=== PATIENT | female | born 1995 | race Caucasian/White ===

== ENCOUNTER 2016-11-06 08:12 | Emergency (ER) | payer MEDICAID ==
[~2016-11-06] VITALS: Ht 160 cm; Wt 46.0 kg
[2016-11-06] MEDS ORDERED: SODIUM CHLORIDE 0.9% 1,000 ML IV ONE (09:12)
[2016-11-06] MEDS ORDERED: ONDANSETRON HCL 4MG/2ML VIAL IV STA (09:12)
[2016-11-06 10:03] LABS: BASOPHILS % 0.3 % (0.0-2.0); EOSINOPHILS % 2.1 % (0.0-5.0); HEMATOCRIT. 34.4 % (36.0-48.0); HEMOGLOBIN. 11.9 g/dL (12.0-16.0); LYMPHOCYTES % 22.6 % (20.0-50.0); MEAN CORPUSCULAR HEMOGLOBIN 29.6 pg (28.0-32.0); MEAN CORPUSCULAR VOLUME 85.7 fL (81.0-99.0); MEAN PLATELET VOLUME 10.2 fl (7.4-10.4); PLATELET 127 x1000/uL (130-400); RED BLOOD CELL COUNT 4.01 mill/uL (4.2-5.4); RED CELL DISTRIBUTION WIDTH 13.9 % (11.6-14.6)
[2016-11-06 10:08] LABS: INR 1.1; PROTHROMBIN TIME 11.5 sec
[2016-11-06 10:14] LABS: CARBON DIOXIDE 31 mEq/L (21-32); CHLORIDE 106 mEq/L (98-107)
[2016-11-06 11:16] LABS: CLARITY URINE CLOUDY (CLEAR); COLOR URINE DARK YELLOW (YELLOW); GLUCOSE URINE NEGATIVE (NEGATIVE); KETONES URINE TRACE (NEGATIVE); LEUKOCYTE ESTERASE URINE NEGATIVE (NEGATIVE); NITRITE URINE NEGATIVE (NEGATIVE); OCCULT BLOOD URINE NEGATIVE (NEGATIVE); PH URINE 5.5 (4.5-8.0); PROTEIN URINE TRACE (NEGATIVE); SPECIFIC GRAVITY URINE 1.027 (1.005-1.030)
[2016-11-06 11:37] LABS: *AMPHETAMINES SCREEN URINE NEGATIVE (NEGATIVE); *BARBITURATES SCREEN URINE NEGATIVE (NEGATIVE); *BENZODIAZEPINES SCREEN URINE NEGATIVE (NEGATIVE); *COCAINE SCREEN URINE NEGATIVE (NEGATIVE); CANNABINOID URINE SCREEN NEGATIVE (NEGATIVE); METHADONE URINE SCREEN NEGATIVE (NEGATIVE); OPIATES URINE SCREEN NEGATIVE (NEGATIVE); PHENCYCLIDINE URINE SCREEN NEGATIVE (NEGATIVE)
[2016-11-06] MEDS ORDERED: KETOROLAC 30MG/ML VIAL IV ONE (12:00)
[2016-11-06 12:08] VITALS: BP 97/65
== END 2016-11-06 12:39 | disposition home or self-care (01) ==
LOC: ER 08:41
DX: R10.9 Unspecified abdominal pain (principal); R50.9 Fever, unspecified
CPT/HCPCS: 36415; 80053; 80305; 81001; 81025; 83690; 85025; 85610; 96361; 96374; 96375; 99284; J1885; J2405; J7030

== ENCOUNTER 2017-01-22 23:32 | Emergency (ER) | payer MEDICAID ==
[~2017-01-22] VITALS: Ht 154.9 cm; Wt 53.6 kg
[2017-01-23] MEDS ORDERED: DICYCLOMINE 10 MG/5 ML ORAL SYR PO ONE (01:45)
[2017-01-23] MEDS ORDERED: SODIUM CHLORIDE 0.9% 1,000 ML IV ONE (01:45)
[2017-01-23 02:22] LABS: BASOPHILS % 0.3 % (0.0-2.0); EOSINOPHILS % 0.6 % (0.0-5.0); HEMATOCRIT. 33.6 % (36.0-48.0); HEMOGLOBIN. 11.5 g/dL (12.0-16.0); LYMPHOCYTES % 23.8 % (20.0-50.0); MEAN CORPUSCULAR HEMOGLOBIN 29.1 pg (28.0-32.0); MEAN CORPUSCULAR VOLUME 85.2 fL (81.0-99.0); MEAN PLATELET VOLUME 11.4 fl (7.4-10.4); NEUTROPHILS % 69.3 % (40.0-76.0); PLATELET 136 x1000/uL (130-400); RED BLOOD CELL COUNT 3.94 mill/uL (4.2-5.4); RED CELL DISTRIBUTION WIDTH 14.1 % (11.6-14.6)
[2017-01-23 02:39] LABS: CARBON DIOXIDE 26 mEq/L (21-32); CHLORIDE 106 mEq/L (98-107)
[2017-01-23 02:49] LABS: B-HCG QUANTITATIVE 92752 mIU/mL (<3)
[2017-01-23 04:11] LABS: *AMPHETAMINES SCREEN URINE NEGATIVE (NEGATIVE); *BARBITURATES SCREEN URINE NEGATIVE (NEGATIVE); *BENZODIAZEPINES SCREEN URINE NEGATIVE (NEGATIVE); *COCAINE SCREEN URINE NEGATIVE (NEGATIVE); CANNABINOID URINE SCREEN NEGATIVE (NEGATIVE); METHADONE URINE SCREEN NEGATIVE (NEGATIVE); OPIATES URINE SCREEN NEGATIVE (NEGATIVE); PHENCYCLIDINE URINE SCREEN NEGATIVE (NEGATIVE)
[2017-01-23] MEDS ORDERED: SODIUM CHLORIDE 0.9% 1,000 ML IV NR (04:41)
[2017-01-23 05:54] VITALS: BP 119/77
== END 2017-01-23 06:04 | disposition home or self-care (01) ==
LOC: ER 23:32
DX: O26.899 Other specified pregnancy related conditions, unspecified trimester (principal); R10.2 Pelvic and perineal pain; R58 Hemorrhage, not elsewhere classified; R10.30 Lower abdominal pain, unspecified
CPT/HCPCS: 36415; 76801; 76817; 80053; 80305; 84702; 85025; 86850; 86900; 86901; 96360; 99285; G0482; J7030; Z7610

== ENCOUNTER 2018-03-26 16:54 | Emergency (ER) | payer MEDICAID ==
[~2018-03-26] VITALS: Ht 154.9 cm; Wt 51.0 kg
[2018-03-26 23:23] LABS: CLARITY URINE CLOUDY (CLEAR); COLOR URINE YELLOW (YELLOW); KETONES URINE TRACE (NEGATIVE); LEUKOCYTE ESTERASE URINE 2+ (NEGATIVE); NITRITE URINE NEGATIVE (NEGATIVE); OCCULT BLOOD URINE 2+ (NEGATIVE); PH URINE 5.5 (4.5-8.0); PROTEIN URINE NEGATIVE (NEGATIVE); SPECIFIC GRAVITY URINE 1.019 (1.005-1.030)
[2018-03-27] MEDS ORDERED: CEPHALEXIN 250MG CAPSULE PO SCH
[2018-03-27 00:15] LABS: BASOPHILS % 0.1 % (0.0-2.0); EOSINOPHILS % 1.5 % (0.0-5.0); HEMATOCRIT. 34.1 % (36.0-48.0); MEAN CORPUSCULAR HEMOGLOBIN 29.6 pg (28.0-32.0); MEAN CORPUSCULAR VOLUME 83.9 fL (81.0-99.0); MEAN PLATELET VOLUME 10.5 fl (7.4-10.4); MONOCYTES % 5.6 % (2.0-8.0); NEUTROPHILS % 67.8 % (40.0-76.0); PLATELET 157 x1000/uL (130-400); RED BLOOD CELL COUNT 4.06 mill/uL (4.2-5.4); RED CELL DISTRIBUTION WIDTH 14.4 % (11.6-14.6)
[2018-03-27 00:23] LABS: CHLORIDE 103 mEq/L (98-107)
[2018-03-27 00:47] LABS: B-HCG QUANTITATIVE 89660 mIU/mL (<3)
[2018-03-27 01:10] VITALS: BP 92/60
== END 2018-03-27 01:31 | disposition home or self-care (01) ==
LOC: ER 20:38
DX: O23.31 Infections of other parts of urinary tract in pregnancy, first trimester (principal); O21.8 Other vomiting complicating pregnancy; O99.341 Other mental disorders complicating pregnancy, first trimester; O99.511 Diseases of the respiratory system complicating pregnancy, first trimester; Z3A.11 11 weeks gestation of pregnancy
CPT/HCPCS: 36415; 76801; 81025; 84702; 86850; 86900; 87077; 99284

== ENCOUNTER 2019-02-08 03:40 | Emergency (ER) | payer MEDICAID ==
[~2019-02-08] VITALS: Ht 160 cm; Wt 53.0 kg
[2019-02-08 04:43] LABS: CLARITY URINE CLOUDY (CLEAR); COLOR URINE DARK YELLOW (YELLOW); KETONES URINE 1+ (NEGATIVE); LEUKOCYTE ESTERASE URINE 2+ (NEGATIVE); NITRITE URINE NEGATIVE (NEGATIVE); OCCULT BLOOD URINE NEGATIVE (NEGATIVE); PH URINE 5.5 (4.5-8.0); PROTEIN URINE 3+ (NEGATIVE)
[2019-02-08 04:53] LABS: BASOPHILS % 0.3 % (0.0-2.0); EOSINOPHILS % 0.1 % (0.0-5.0); HEMATOCRIT. 39.4 % (36.0-48.0); HEMOGLOBIN. 13.3 g/dL (12.0-16.0); LYMPHOCYTES % 14.7 % (20.0-50.0); MEAN CORPUSCULAR VOLUME 85.8 fL (81.0-99.0); MEAN PLATELET VOLUME 11.6 fl (7.4-10.4); MONOCYTES % 7.2 % (2.0-8.0); NEUTROPHILS % 77.7 % (40.0-76.0); PLATELET 139 x1000/uL (130-400)
[2019-02-08 04:55] LABS: CHLORIDE 106 mEq/L (98-107)
[2019-02-08 06:34] VITALS: BP 95/66
== END 2019-02-08 06:39 | disposition home or self-care (01) ==
LOC: ER 03:40
DX: N39.0 Urinary tract infection, site not specified (principal); K52.9 Noninfective gastroenteritis and colitis, unspecified
CPT/HCPCS: 36415; 80053; 81003; 81025; 83690; 85025; 87086; 99283; Z7610

== ENCOUNTER 2019-04-09 02:53 | Emergency (ER) | payer MEDICAID ==
[~2019-04-09] VITALS: Ht 154.9 cm; Wt 46.9 kg
[2019-04-09 05:05] LABS: CLARITY URINE CLOUDY (CLEAR); COLOR URINE YELLOW (YELLOW); KETONES URINE NEGATIVE (NEGATIVE); LEUKOCYTE ESTERASE URINE 2+ (NEGATIVE); NITRITE URINE NEGATIVE (NEGATIVE); OCCULT BLOOD URINE 3+ (NEGATIVE); PH URINE 7.5 (4.5-8.0); PROTEIN URINE 2+ (NEGATIVE); SPECIFIC GRAVITY URINE 1.019 (1.005-1.030)
[2019-04-09 05:52] VITALS: BP 110/59
== END 2019-04-09 06:02 | disposition home or self-care (01) ==
LOC: ER 02:53
DX: N39.0 Urinary tract infection, site not specified (principal); F12.10 Cannabis abuse, uncomplicated
CPT/HCPCS: 81003; 81025; 99283

== ENCOUNTER 2019-06-11 01:44 | Emergency (ER) | payer MEDICAID ==
[~2019-06-11] VITALS: Ht 157.5 cm; Wt 50.0 kg
[2019-06-11] MEDS ORDERED: SODIUM CHLORIDE 0.9% 1,000 ML IV ONE ×2 (03:37→05:10)
[2019-06-11] MEDS ORDERED: ONDANSETRON HCL 4MG/2ML INJ IV ONE (03:45)
[2019-06-11 04:00] LABS: BASOPHILS % 0.1 % (0.0-2.0); CHLORIDE 106 mEq/L (98-107); EOSINOPHILS % 1.3 % (0.0-5.0); HEMATOCRIT. 32.4 % (36.0-48.0); HEMOGLOBIN. 11.1 g/dL (12.0-16.0); LYMPHOCYTES % 24.4 % (20.0-50.0); MEAN CORPUSCULAR HEMOGLOBIN 28.8 pg (28.0-32.0); MEAN CORPUSCULAR VOLUME 84.4 fL (81.0-99.0); MEAN PLATELET VOLUME 11.1 fl (7.4-10.4); MONOCYTES % 6.6 % (2.0-8.0); NEUTROPHILS % 67.6 % (40.0-76.0); PLATELET 130 x1000/uL (130-400); RED BLOOD CELL COUNT 3.84 mill/uL (4.2-5.4); RED CELL DISTRIBUTION WIDTH 14.9 % (11.6-14.6)
[2019-06-11 04:24] LABS: B-HCG QUANTITATIVE 70332 mIU/mL (<3)
[2019-06-11 06:02] LABS: CLARITY URINE CLOUDY (CLEAR); COLOR URINE YELLOW (YELLOW); KETONES URINE NEGATIVE (NEGATIVE); LEUKOCYTE ESTERASE URINE 3+ (NEGATIVE); NITRITE URINE NEGATIVE (NEGATIVE); OCCULT BLOOD URINE NEGATIVE (NEGATIVE); PH URINE 6.5 (4.5-8.0); PROTEIN URINE NEGATIVE (NEGATIVE); SPECIFIC GRAVITY URINE 1.013 (1.005-1.030)
[2019-06-11 07:40] VITALS: BP 98/52
== END 2019-06-11 07:45 | disposition home or self-care (01) ==
LOC: ER 02:05
DX: O46.91 Antepartum hemorrhage, unspecified, first trimester (principal); O23.41 Unspecified infection of urinary tract in pregnancy, first trimester; F12.10 Cannabis abuse, uncomplicated; Z3A.12 12 weeks gestation of pregnancy
CPT/HCPCS: 36415; 76801; 80053; 81003; 81025; 84702; 85025; 86850; 86900; 86901; 87086; 96361; 96374; 99284; J2405; J7030

== ENCOUNTER 2021-08-26 23:56 | Emergency (ER) | payer SELFPAY ==
[~2021-08-26] VITALS: Ht 157.5 cm; Wt 54.0 kg
[2021-08-27 00:45] LABS: BASOPHILS % 0.2 % (0.0-2.0); EOSINOPHILS % 1.1 % (0.0-5.0); HEMATOCRIT. 33.7 % (36.0-48.0); HEMOGLOBIN. 11.1 g/dL (12.0-16.0); LYMPHOCYTES % 22.8 % (20.0-50.0); MEAN CORPUSCULAR HEMOGLOBIN 27.1 pg (28.0-32.0); MEAN CORPUSCULAR VOLUME 82.2 fL (81.0-99.0); MEAN PLATELET VOLUME 10.9 fl (7.4-10.4); MONOCYTES % 7.2 % (2.0-8.0); NEUTROPHILS % 68.7 % (40.0-76.0); PLATELET 158 x1000/uL (130-400); RED CELL DISTRIBUTION WIDTH 15.6 % (11.6-14.6)
[2021-08-27 00:56] LABS: CHLORIDE 106 mEq/L (98-107)
[2021-08-27 01:19] LABS: B-HCG QUANTITATIVE 71716 mIU/mL (<3)
[2021-08-27 02:25] VITALS: BP 109/65
== END 2021-08-27 02:26 | disposition home or self-care (01) ==
LOC: ER 23:56
DX: O20.9 Hemorrhage in early pregnancy, unspecified (principal); Z3A.09 9 weeks gestation of pregnancy
CPT/HCPCS: 36415; 76801; 80053; 81025; 84702; 85025; 86850; 86900; 99284

== ENCOUNTER 2023-09-09 15:27 | Emergency (ER) | payer MEDICAID ==
[~2023-09-09] VITALS: Ht 162.6 cm; Wt 58.0 kg
[2023-09-09 15:37] VITALS: O2SAT 99
[2023-09-09 16:10] LABS: BASOPHILS % 0.3 % (0.0-2.0); DIFFERENTIAL COMMENT 0; EOSINOPHILS % 2.6 % (0.0-5.0); HEMATOCRIT. 39.1 % (36.0-48.0); HEMOGLOBIN. 13.4 g/dL (12.0-16.0); LYMPHOCYTES % 13.4 % (20.0-50.0); MEAN CORPUSCULAR HEMOGLOBIN 29.9 pg (28.0-32.0); MEAN CORPUSCULAR HGB CONC 34.3 g/dL (31.0-37.0); MEAN CORPUSCULAR VOLUME 87.1 fL (81.0-99.0); MEAN PLATELET VOLUME 11.1 fl (7.4-10.4); MONOCYTES % 5.9 % (2.0-8.0); NEUTROPHILS % 77.8 % (40.0-76.0); PLATELET 179 x1000/uL (130-400); RED BLOOD CELL COUNT 4.49 mill/uL (4.2-5.4); RED CELL DISTRIBUTION WIDTH 13.8 % (11.6-14.6); WHITE BLOOD COUNT 11.4 x1000/uL (4.5-11.0)
[2023-09-09 16:14] LABS: CHLORIDE 105 mEq/L (98-107); POTASSIUM 3.7 mEq/L (3.5-5.1); SODIUM 136 mEq/L (136-145)
[2023-09-09 16:15] LABS: CARBON DIOXIDE 25 mEq/L (21-32)
[2023-09-09 16:16] LABS: CALCIUM 9.4 mg/dL (8.7-10.4)
[2023-09-09 16:20] LABS: CREATININE 0.6 mg/dL (0.6-1.0)
[2023-09-09 16:21] LABS: GLUCOSE 110 mg/dL (70-105); UREA NITROGEN BLOOD 7 mg/dL (9-23)
[2023-09-09 16:40] LABS: B-HCG QUANTITATIVE 97507 mIU/mL (<3)
[2023-09-09] MEDS: ONDANSETRON 4MG ODT PO ONE (18:00)
[2023-09-09] MEDS: ACETAMINOPHEN 325MG TABLET PO PRN (18:06)
[2023-09-09 18:07] LABS: ALANINE AMINOTRANSFERASE < 7 IU/L (10-49); ALBUMIN 4.2 g/dL (3.2-4.8); ASPARTATE AMINOTRANSFERASE 22 IU/L (<34); BILIRUBIN DIRECT 0.1 mg/dL (<=3.0); BILIRUBIN TOTAL 0.5 mg/dL (0.1-1.0); PROTEIN TOTAL 7.2 g/dL (6.0-8.3)
[2023-09-09 19:23] LABS: CLARITY URINE TURBID (CLEAR); COLOR URINE RED (YELLOW); GLUCOSE URINE NEGATIVE (NEGATIVE); KETONES URINE NEGATIVE (NEGATIVE); LEUKOCYTE ESTERASE URINE 1+ (NEGATIVE); NITRITE URINE NEGATIVE (NEGATIVE); OCCULT BLOOD URINE 3+ (NEGATIVE); PH URINE 5.5 (4.5-8.0); PROTEIN URINE 1+ (NEGATIVE); SPECIFIC GRAVITY URINE 1.026 (1.005-1.030)
[2023-09-09 19:44] LABS: BACTERIA URINE TRACE; RBC URINE TNTC /hpf (0-2); SQUAMOUS EPITHELIAL CELL URINE RARE /lpf (RARE/1+)
[2023-09-09] MEDS: CEFTRIAXONE SODIUM 1G VIAL IM ONE (20:50)
[2023-09-09] MEDS: LIDOCAINE HCL 1% 20ML VIAL (Pyxis) INJ INFIL ONE (20:58)
[2023-09-09] MEDS ORDERED: CEPH500C2 MT (22:04)
[2023-09-09] MEDS: MISOPROSTOL 200MCG TABLET PO ONE (22:48)
[2023-09-09] MEDS: CEFTRIAXONE 1GM/50ML 50 ML IV ONE (22:49)
[2023-09-09 22:50] VITALS: BP 133/91; PULSE 62; RESP 14; TEMP 98.7
== END 2023-09-09 22:52 | disposition home or self-care (01) ==
LOC: ER 15:27
DX: O46.91 Antepartum hemorrhage, unspecified, first trimester (principal); O26.891 Other specified pregnancy related conditions, first trimester; Z3A.01 Less than 8 weeks gestation of pregnancy
CPT/HCPCS: 99285; 76830; 76856; 80076; 80048; 81003; 84702; 83690; 85025; 86850; 86900; 86901; 96372; 36415; J0696

== ENCOUNTER 2023-12-03 07:29 | Emergency (ER) | payer MEDICAID ==
[~2023-12-03] VITALS: Ht 157.5 cm; Wt 58.1 kg
[~2023-12-03 07:29] MED LIST: CEPH500C2 MT
[2023-12-03 07:38] VITALS: O2SAT 98
[2023-12-03 08:11] LABS: CLARITY URINE CLOUDY (CLEAR); COLOR URINE YELLOW (YELLOW); GLUCOSE URINE NEGATIVE (NEGATIVE); KETONES URINE NEGATIVE (NEGATIVE); LEUKOCYTE ESTERASE URINE 1+ (NEGATIVE); NITRITE URINE NEGATIVE (NEGATIVE); OCCULT BLOOD URINE NEGATIVE (NEGATIVE); PROTEIN URINE TRACE (NEGATIVE); SPECIFIC GRAVITY URINE 1.026 (1.005-1.030)
[2023-12-03 08:52] LABS: BACTERIA URINE 1+; RBC URINE 0-2 /hpf (0-2); SQUAMOUS EPITHELIAL CELL URINE 3+ /lpf (RARE/1+); YEAST URINE NONE SEEN
[2023-12-03] MEDS ORDERED: CIPR-264 MT (09:22)
[2023-12-03 09:47] VITALS: BP 112/68; PULSE 64; RESP 16; TEMP 98.3
== END 2023-12-03 10:30 | disposition home or self-care (01) ==
LOC: ER 07:32
DX: N39.0 Urinary tract infection, site not specified (principal)
CPT/HCPCS: 81003; 81025; 99283